=== PATIENT | female | born 1995 | race Caucasian/White ===

== ENCOUNTER 2020-04-16 22:58 | Emergency (ER) | payer OTHER, MEDICAID | END 2020-04-17 02:40 | disposition home or self-care (01) | LOC: ED 22:58 | DX: S51.011A Laceration without foreign body of right elbow, initial encounter (principal); S40.011A Contusion of right shoulder, initial encounter; F10.129 Alcohol abuse with intoxication, unspecified; Y90.6 Blood alcohol level of 120-199 mg/100 ml; V89.2XXA Person injured in unspecified motor-vehicle accident, traffic, initial encounter; Z88.0 Allergy status to penicillin | CPT/HCPCS: 70450; 71260; 72125; 73030; 74177; 80053; 82150; 82550; 83605; 83690; 84703; 85025; 86850; 86900; 86901; 99284-25; G0480; Q9967 ==